=== PATIENT | female | born 1950 | race Caucasian/White ===

== ENCOUNTER 2018-09-26 06:23 | Inpatient (IN) | payer MEDICARE, BC ==
[2018-09-26] VITALS (30 sets, daily range): BP systolic 120–193; BP diastolic 64–97; PULSE 70–98; RESP 12–21; Ht 160 cm; Wt 74.5 kg
[~2018-09-26] VITALS: Ht 160 cm; Wt 74.5 kg
[~2018-09-26 06:23] MED LIST: FOR HTN; [UNRECOGNIZED DRUG - REMARK]
[2018-09-26] MEDS ORDERED: ATOR40TA68 PO (06:50)
[2018-09-26] MEDS ORDERED: GABA300C16 PO (06:51)
[2018-09-26] MEDS ORDERED: DULO20CA17 PO (06:51)
[2018-09-26] MEDS ORDERED: GLIP5TAB13 PO (06:52)
[2018-09-26] MEDS ORDERED: HEPARIN 1000 UNITS/ML 10 ML INJ ONE (06:52)
[2018-09-26] MEDS ORDERED: MIDAZOLAM 1 MG/ML 2 ML INJ ONE (06:52)
[2018-09-26] MEDS ORDERED: FENTAnyl 50 MCG/ML VIAL ONE (06:52)
[2018-09-26] MEDS ORDERED: LIDOCAINE 1% (MDV) 20 ML INJ ONE (06:52)
[2018-09-26] MEDS ORDERED: LISI10TA2 PO (06:52)
[2018-09-26] MEDS ORDERED: IODIXANOL LOCM 100 ML BTL ONE ×2 (06:52→08:52)
[2018-09-26] MEDS ORDERED: VERAPAMIL 5 MG INJ ONE (06:53)
[2018-09-26] MEDS ORDERED: NITROGLYCERIN (IC) 100 MCG/ML INJ ONE (06:53)
[2018-09-26] MEDS ORDERED: PANT40TA3 PO (06:53)
[2018-09-26] MEDS ORDERED: LINA5TAB PO (06:53)
[2018-09-26] MEDS ORDERED: SOD CHLORIDE 0.9% 500 ML ONE (06:54)
[2018-09-26] MEDS ORDERED: ENOX40DI2 SC (06:54)
[2018-09-26] MEDS ORDERED: METF100010 PO (07:06)
[2018-09-26] MEDS ORDERED: ASPI81TA52 PO (07:07)
[2018-09-26] MEDS ORDERED: INSU100V3 IJ (07:09)
[2018-09-26] MEDS ORDERED: METO-429 PO (07:09)
[2018-09-26] MEDS ORDERED: LANT3I SC (07:10)
[2018-09-26] MEDS ORDERED: BIVALIRUDIN 250MG /NS 50 ML 50 ML IVPB ONE (08:16)
[2018-09-26] MEDS ORDERED: IOHEXOL 350MG/ML 50 ML BTL ONE (08:16)
[2018-09-26] MEDS ORDERED: TICAGRELOR 90 MG TABLET ONE (08:19)
[2018-09-26] MEDS ORDERED: ASPIRIN 325 MG TAB ONE (08:21)
[2018-09-26] MEDS: ASPIRIN 81 MG TAB PO SCH (09:30)
[2018-09-26] MEDS ORDERED: LOSARTAN 50 MG TAB PO SCH (09:30)
--- NOTE | 2018-09-26 09:43 | OPR ---
Date/Time of Note Date/Time of Note DATE: 09/26/18 TIME: 09:28 Operative Report Procedure Date: Sep 26, 2018 Preoperative Diagnosis CAD, angina, abnormal cardiac CTA Postoperative Diagnosis same s/p PCI of LAD Operation/Procedure Performed see details Surgeon see signature line Metal Tube Cutter none Anesthesia Type: moderate sedation Estimated Blood Loss: minimal Transfusion none Specimen none Grafts/Implants none Complications none Procedure Description Procedure Date:09/26/18 Medical Or Surgical Instrument Maker/surgeon: Jeison Nolasco MD. Procedures Performed: 1)Left heart catheterization with selective left and right coronary angiography. 2)Balloon angioplasty and stenting of the mid LAD with 2.25 x 24 and 2.75 x 12 overlapping stents 3)Right femoral angiography with Perclose closure device Pre-operative Diagnosis:CAD, angina, abnormal cardiac CTA Post-operative Diagnosis:same s/p PCI Indications: 68 yo F with uncontrolled DM, HTN, HL, admitted for uncontrolled glucose and exertional angina. Cardiac CTA showed >75% LAD disease for which she was brought to the cardiac roving tester laboratory Description of Procedure: After informed consent, the patient was brought to the cardiac catheterization lab. The procedure site was prepped and draped in usual manner. The patient was premedicated with versed 1 mg and fentanyl 25 mcg. 3 mL lidocaine was injected into the left wrist. Next using the posterior wall technique, the 6/5 [place] sheath was inserted into the left radial artery. Next using the JR4, selective angiography of the right coronary artery were obtained. The left could not be engaged due to anatomy. The decision was made to convert to femoral acces and the right femoral artery was accessed with micropuncture and exchanged for a 6 [place] catheter. The decision was made to proceed with PCI of the LAD. A EBU 3.0 guide was advanced and engaged into the left coronary artery. After appropriate anticoagulation and antiplatelets were given, the BMW angioplasty wire was advanced past the lesion. Next the 2.0 X 12 balloon was used to dilate the lesion times 4 at a maximum of 10 gilberto. Subsequently, the Synergy 2.25 x 24 stent was advanced to the lesion and deployed at 12 gilberto. As the vessel tapered and the proximal portion was larger, this was stented with a Synergy 2.75 x 12 overlapping with the first stent. Next the stent was post dilated with the 2.5 x 12 and 2.75 x 12 noncompliant balloons. Final angiography revealed LORENZO 3 flow, no edge dissection, and appropriate stent expansion. Right femoral angiography was obtained and showed the sheath was in the common femoral artery. Next all equipment was removed and hemostasis was achieved by TR band for the left radial and Perclose closure device for the right femoral. Findings: Anatomy/Hemodynamics: Left main:normal LAD:ostial 40%, mid long up to 90% disease Diagonal:very small 1.5 mm vessel with diffuse severe disease Circumflex:luminal irregularities Obtuse marginal:distal 50-60% in a small tortuous vessel RCA:prox 40%, diffuse 20% PDA:luminal irregularities PLV:luminal irregularities LV angiography:not done LVEDP:5-10 mmHg No LV-Ao gradient Contrast used:180 mL Fluoroscopy time:23.8 Medications used: Versed 1 Fentanyl 25 Radial cocktail: heparin 5000 units, NTG 200mcg, verapamil 2.5mg Angiomax Brilinta 180mg Equipment used: 6 [place] 6 guide BMW angioplasty wire 2 x 12 balloon Synergy 2.25 x 24 and Synergy 2.75 x 12 overlapping drug eluting stents 2.5 x 12 and 2.75 x 12 noncompliant balloon Estimated blood loss<10 mL. Specimen: none Grafts/implants: none Complications: none Assessment: CAD: s/p PCI of LAD. Residual small vessel disease not amenable to PCI DM HTN HL Plan: -admit to tele -ASA 81mg indefinitely -brilinta 90mg BID -lipitor 40mg -metoprolol 25mg BID -losartan 50mg -DM control JEISON NOLASCO Sep 26, 2018 09:43
--- NOTE | 2018-09-26 09:44 | CONS ---
Assessment/Plan Assessment/Plan Hospital Course (Demo Recall) CAD: s/p PCI of LAD 09/26/18. Residual small vessel disease not amenable to PCI DM: A1C >14 HTN HL -admit to [facility] -ASA 81mg indefinitely -brilinta 90mg BID -lipitor 40mg -metoprolol 25mg BID -losartan 50mg -DM control Consultation Date/Type/Reason Admit Date/Time Date of Consultation: Sep 26, 2018 Type of Consult Cardiology Reason for Consultation chest pain, abnormal cardiac CTA Requesting Provider: JENNIFER RODRIGUEZ MD Date/Time of Note DATE: 09/26/18 TIME: 09:43 Hx of Present Illness 68 yo F with uncontrolled DM, HTN, HL, admitted for uncontrolled glucose and exertional angina. Cardiac CTA showed >75% LAD disease for which she was recommended to have cardiac cath by Dr. Rodriguez. She was transferred to [facility] where cath showed LAD disease, now s/p successful PCI. No chest pain or SOB post procedure. per hPi Past Medical History per HPI Home Meds Reported Medications Insulin Glargine* (Lantus*) 100 Unit/Ml Soln, 25 UNIT SC QHS, #1 VIAL 09/26/18 Insulin Regular, Human (Humulin R) 100 Unit/1 Ml Vial, 0 IJ DAILY, VIAL SLIDING SCALE 09/26/18 Metoprolol Tartrate* (Lopressor*) 50 Mg Tab, 50 MG PO Q6, #60 TAB 09/26/18 Aspirin (Low Dose Aspirin) 81 Mg Tablet.dr, 81 MG PO DAILY, #30 TAB 09/26/18 Metformin Hcl* (Metformin Hcl*) 1,000 Mg Tablet, 1000 MG PO WITH BREAKFAST DINNE, #60 TAB 09/26/18 Enoxaparin Sodium* (Enoxaparin Sodium*) 40 Mg/0.4 Ml Syringe, 40 MG SC DAILY, SYR 09/26/18 Linagliptin (TRADJENTA) 5 Mg Tablet, 5 MG PO DAILY, TAB 09/26/18 Pantoprazole* (Protonix*) 40 Mg Tablet.dr, 40 MG PO DAILY, TAB 09/26/18 Lisinopril* (Lisinopril*) 10 Mg Tablet, 10 MG PO DAILY, #30 TAB 09/26/18 Glipizide* (Glipizide*) 5 Mg Tablet, 5 MG PO AC BREAKFAST, TAB 09/26/18 Gabapentin* (Gabapentin*) 300 Mg Capsule, 300 MG PO BID, #60 CAP 09/26/18 Duloxetine Hcl* (Duloxetine Hcl*) 20 Mg Capsule.dr, 20 MG PO DAILY, #30 CAP 09/26/18 Atorvastatin* (Atorvastatin*) 40 Mg Tablet, 40 MG PO QHS, #30 TAB 09/26/18 Discontinued Reported Medications [For Dm Daily] No Conflict Check 02/27/14 [For Htn] No Conflict Check 02/27/14 Allergies: Coded Allergies: No Known Drug Allergies (Unverified Allergy, Unknown, 09/26/18) Social History Smoking Status: Current every day smoker Exam/Review of Systems Exam Vitals Vital Signs Date Temp Pulse Resp B/P (MAP) Pulse Ox O2 O2 Flow FiO2 Time Delivery Rate 09/26/18 96.6 77 18 156/69 98 Room Air 06:45 (98) Constitutional: alert, oriented Psych: no complaints, nl mood/affect Head: normocephalic, atraumatic Neck: supple; No jvd Respiratory: clear to auscultation; No crackles/rales Cardiovascular: regular rate and rhythm; No edema, No systolic murmur Gastrointestinal: soft, non-tender; No distended Musculoskeletal: nl extremities to inspection Neurological: nl mental status, nl speech Results Results 24hrs Laboratory Tests Test 09/26/18 06:57 Bedside Glucose 298 H CAMILO RODRIGUEZ Sep 26, 2018 09:44
[2018-09-26] MEDS ORDERED: hydrALAzine 20 MG INJ IV PRN (10:00)
[2018-09-26] MEDS: LOSARTAN 50 MG TAB PO SCH (10:21)
[2018-09-26] MEDS: ACETAMINOPHEN 325 MG TAB PO PRN (10:37)
[2018-09-26] MEDS: ACCU-CHEK XX SCH ×3 (11:30→22:06)
[2018-09-26] MEDS ORDERED: GLUCOSE GEL 15 GRAM TUBE PO PRN ×2 (12:30)
[2018-09-26] MEDS ORDERED: GLUCOSE GEL 15 GRAM TUBE BUCCAL PRN (12:30)
[2018-09-26] MEDS ORDERED: GLUCAGON 1 MG INJ IM PRN (12:30)
[2018-09-26] MEDS ORDERED: DEXTROSE 50% 50 ML SYRINGE IV PRN ×2 (12:30)
[2018-09-26] MEDS: INSULIN ASPART [NOVOLOG] 3 ML PEN SC SCH ×4 (12:37→22:02)
[2018-09-26] MEDS: HYDROCODONE/APAP (5/325) TAB PO PRN (15:34)
--- NOTE | 2018-09-26 16:33 | HP ---
DATE OF ADMISSION: 09/26/2018 CHIEF COMPLAINT: Coronary artery disease. HISTORY OF PRESENT ILLNESS: This is a 68-year-old female with a past medical history of diabetes, hy pertension, dyslipidemia, history of peptic ulcer disease, who presented to ER from a clinic due to h yperglycemia. The patient in the emergency room was also reported having anterior chest pain, nonrad iating. The patient was then transferred to [facility] [place] to undergo cardiac catheter ization for possible acute coronary syndrome. The patient underwent cardiac catheterization by Dr. Kristi lucas and had PCI to the LAD. The patient was then transferred to recovery room for further eval uation. Upon my evaluation of the patient at this time, she is currently stable. Denies any hemoptysis, [place] temesis or hematochezia. The patient denies any prior history of kidney disease, but does state that she had elevated blood glucose levels and uncontrolled sugars. No other events noted. PAST MEDICAL HISTORY: As stated above, history of diabetes, hypertension, dyslipidemia, peptic ulcer disease. PAST SURGICAL HISTORY: History of cholecystectomy. FAMILY HISTORY: No family history of kidney disease. SOCIAL HISTORY: Does not drink, smoke or do any drugs. MEDICATIONS: Have been reviewed. ALLERGIES: NO KNOWN DRUG ALLERGIES. REVIEW OF SYSTEMS: A 14-point review of systems was conducted. Pertinent positives stated in HPI, o therwise negative. PHYSICAL EXAMINATION: VITAL SIGNS: Blood pressure is 153/68, respiration 12, pulse 76, temperature is 98.3. HEENT: Head is normocephalic. NECK: Supple. HEART: Regular rate. LUNGS: Show diminished breath sounds at the base. ABDOMEN: Soft, nontender to palpation without rebound or guarding. EXTREMITIES: Negative for clubbing, cyanosis. No edema. DERMATOLOGIC: No rashes. MUSCULOSKELETAL: No joint effusions. NEUROLOGIC: No focal deficits. LABORATORY DATA: Have been reviewed. The patient's sodium is 137, potassium 3.7, BUN 11, creatinine 0.39, glucose 283. White count is 9.9, hemoglobin 13.0, platelet count 177. ASSESSMENT AND PLAN: This is a 68-year-old female who presents with: 1. Coronary artery disease. The patient is status post PCI to LAD. The patient is currently stable . We will continue medical management with aspirin, Brilinta, Lipitor. Metoprolol was started. We will follow up with cardiology for recommendations. 2. Diabetes, uncontrolled. The patient had a hemoglobin A1c of 14 at outside hospital. Plan is to start the patient on long-acting Lantus 15 units daily. We will give insulin with meals. We will al so continue oral medications of metformin and Tradjenta. We will adjust insulin regimen as needed. 3. Hypertension. Continue current blood pressure regimen. 4. Dyslipidemia. Continue statin therapy. 5. History of peptic ulcer disease. We will continue PPI. 6. Diabetic neuropathy. Continue Neurontin. 7. History of depression. Continue Cymbalta. 8. Gastrointestinal and deep venous thrombosis prophylaxis. Continue PPI and Lovenox. 9. General debility. Place physical therapy consult for evaluation. 10. History of back pain with radiculopathy. We will place a physical therapy for evaluation. Cont inue pain control and monitor closely. Dictated By: THIERNO MAC DO NR/NTS Conf#: [id number] DID#: [id number] CC: CAMILO RODRIGUEZ MD;*EndCC*
[2018-09-26] MEDS: ATORVASTATIN 40 MG TAB PO SCH (20:29)
[2018-09-26] MEDS: HYDROCODONE/APAP (10/325) TAB PO PRN (20:30)
[2018-09-26] MEDS: GABAPENTIN 300 MG CAP PO SCH (20:30)
[2018-09-26] MEDS: TICAGRELOR 90 MG TABLET PO SCH (20:33)
[2018-09-26] MEDS ORDERED: METOPROLOL 25 MG TAB PO SCH (21:00)
[2018-09-27] VITALS (11 sets, daily range): BP systolic 125–152; BP diastolic 60–84; PULSE 78–89; RESP 18–20
[2018-09-27] MEDS ORDERED: ACCU-CHEK XX SCH ×2 (02:00→17:25)
[2018-09-27] MEDS: HYDROCODONE/APAP (5/325) TAB PO PRN ×2 (02:56→12:34)
[2018-09-27] MEDS: HYDROCODONE/APAP (10/325) TAB PO PRN ×2 (05:31→17:08)
[2018-09-27] MEDS: INSULIN ASPART [NOVOLOG] 3 ML PEN SC SCH ×7 (07:58→21:48)
[2018-09-27] MEDS ORDERED: INSULIN GLARGINE [LANTus] (100 UNITS/ML) SYG SC SCH (08:00)
[2018-09-27] MEDS: ACCU-CHEK XX SCH ×4 (08:00→21:48)
[2018-09-27] MEDS ORDERED: LINAGLIPTIN 5 MG TABLET PO SCH ×2 (09:00→21:00)
[2018-09-27] MEDS: DULOXETINE 20 MG CAP DR PO SCH (09:09)
[2018-09-27] MEDS: GABAPENTIN 300 MG CAP PO SCH ×2 (09:09→21:40)
[2018-09-27] MEDS: PANTOPRAZOLE (EC) 40 MG TAB PO SCH (09:10)
[2018-09-27] MEDS: ASPIRIN 81 MG TAB PO SCH (09:10)
[2018-09-27] MEDS: LOSARTAN 50 MG TAB PO SCH (09:11)
[2018-09-27] MEDS: TICAGRELOR 90 MG TABLET PO SCH ×2 (09:12→21:46)
[2018-09-27] MEDS: ENOXAPARIN 40 MG/0.4 ML SYG SC SCH (09:21)
--- NOTE | 2018-09-27 09:28 | CONS ---
Assessment/Plan Assessment/Plan Hospital Course (Demo Recall) CAD: s/p PCI of LAD 09/26/18. Residual small vessel disease not amenable to PCI. Doing well DM: A1C >14 HTN HL -ASA 81mg -brilinta 90mg BID -lipitor 40mg -increase to metoprolol 50mg BID -losartan 100mg Ok for d/c from my perspective. Possible SNF Consultation Date/Type/Reason Admit Date/Time Sep 26, 2018 at 09:51 Initial Consult Date 09/26/18 Type of Consult Cardiology Requesting Provider: JENNIFER ESQUIVEL MD Date/Time of Note DATE: 09/27/18 TIME: 09:26 24 HR Interval Summary Free Text/Dictation No events. No complaints. No chest pain. BP better but still slightly high Exam/Review of Systems Exam Vitals Vital Signs Date Temp Pulse Resp B/P (MAP) Pulse Ox O2 O2 Flow FiO2 Time Delivery Rate 09/27/18 83 09:03 09/27/18 98.0 18 151/69 97 Room Air 07:27 (96) Intake and Output 09/26/18 09/26/18 09/27/18 1515:00 23:00 07:00 IntakeIntake Total 300 ml 250 ml BalanceBalance 300 ml 250 ml Constitutional: alert, oriented Psych: no complaints, nl mood/affect Head: normocephalic, atraumatic Neck: supple; No jvd Respiratory: clear to auscultation; No crackles/rales Cardiovascular: regular rate and rhythm; No edema, No systolic murmur Gastrointestinal: soft, non-tender; No distended Extremities: other (right groin slight ecchymosis, no hematoma. Left wrist no hematoma ) Neurological: nl speech Results Result Diagram: 09/27/18 0735 09/27/18 0735 Results 24hrs Laboratory Tests Test 09/26/18 09:58 09/26/18 10:47 09/26/18 11:52 09/26/18 16:48 Bedside Glucose 256 H 291 H 297 H White Blood Count 9.9 Red Blood Count 4.39 Hemoglobin 13.0 Hematocrit 38.1 Mean Corpuscular 86.8 Volume Mean Corpuscular 29.6 Hemoglobin Mean Corpuscular 34.1 Hemoglobin Concent Red Cell 11.9 Distribution Width Platelet Count 177 Mean Platelet Volume 11.0 H Immature 0.700 H Granulocytes % Neutrophils % 68.0 Lymphocytes % 24.2 Monocytes % 5.2 Eosinophils % 1.5 Basophils % 0.4 Nucleated Red Blood 0.0 Cells % Immature 0.070 H Granulocytes # Neutrophils # 6.7 Lymphocytes # 2.4 Monocytes # 0.5 Eosinophils # 0.2 Basophils # 0.0 Nucleated Red Blood 0.0 Cells # Sodium Level 137 Potassium Level 3.7 Chloride Level 104 Carbon Dioxide Level 24 Anion Gap 9 Blood Urea Nitrogen 11 Creatinine 0.39 L Est Glomerular > 60 Filtrat Rate mL/min Glucose Level 283 H Calcium Level 8.8 Total Bilirubin 0.2 Direct Bilirubin 0.00 Indirect Bilirubin 0.2 Aspartate Amino 20 Transf (AST/SGOT) Alanine 31 Aminotransferase (AL T/SGPT) Alkaline Phosphatase 143 H Total Protein 5.6 L Albumin 3.2 L Test 09/26/18 21:54 09/27/18 02:05 09/27/18 05:30 09/27/18 07:35 Bedside Glucose 269 H 220 Urine Color STRAW Urine Clarity CLEAR Urine pH 7.0 Urine Specific 1.008 [place] Urine Ketones TRACE A Urine Nitrite NEGATIVE Urine Bilirubin NEGATIVE Urine Urobilinogen NEGATIVE Urine Leukocyte TRACE A Esterase Urine Microscopic 0 RBC Urine Microscopic 5 WBC Urine Hemoglobin NEGATIVE Urine Random 23.44 Creatinine Urine Random Sodium 68 Urine Glucose 3+ H Urine Total Protein 21.0 H White Blood Count 8.3 Red Blood Count 4.25 Hemoglobin 12.6 Hematocrit 36.8 L Mean Corpuscular 86.6 Volume Mean Corpuscular 29.6 Hemoglobin Mean Corpuscular 34.2 Hemoglobin Concent Red Cell 12.0 Distribution Width Platelet Count 174 Mean Platelet Volume 11.6 H Immature 0.500 H Granulocytes % Neutrophils % 75.8 Lymphocytes % 15.2 Monocytes % 6.4 Eosinophils % 1.7 Basophils % 0.4 Nucleated Red Blood 0.0 Cells % Immature 0.040 H Granulocytes # Neutrophils # 6.3 Lymphocytes # 1.3 Monocytes # 0.5 Eosinophils # 0.1 Basophils # 0.0 Nucleated Red Blood 0.0 Cells # Sodium Level 139 Potassium Level 3.4 L Chloride Level 105 Carbon Dioxide Level 25 Anion Gap 9 Blood Urea Nitrogen 8 Creatinine 0.48 Est Glomerular > 60 Filtrat Rate mL/min Glucose Level 309 H Calcium Level 9.1 Phosphorus Level 4.3 Magnesium Level 1.6 L Test 09/27/18 07:55 Bedside Glucose 334 H Medications Medication Current Medications Acetaminophen (Tylenol Tab) 650 mg Q4H PRN PO NON-CARDIAC PAIN LEVEL (1-3) Last administered on 09/26/18 10:37; Admin Dose 650 MG; Start 09/26/18 at 09:30 Aspirin (Aspirin) 81 mg DAILY PO Last administered on 09/27/18 09:10; Admin Dose 81 MG; Start 09/26/18 at 09:30 Ticagrelor (Brilinta) 90 mg BID PO Last administered on 09/27/18 09:12; Admin Dose 90 MG; Start 09/26/18 at 21:00 Atorvastatin Calcium (Lipitor) 40 mg HS PO Last administered on 09/26/18 20:29; Admin Dose 40 MG; Start 09/26/18 at 21:00 Losartan Potassium (Cozaar) 100 mg DAILY PO Last administered on 09/27/18 09:11; Admin Dose 100 MG; Start 09/26/18 at 10:00 Hydralazine HCl (Apresoline) 10 mg Q4H PRN IV SBP >160 Last administered on 09/26/18 10:08; Admin Dose 10 MG; Start 09/26/18 at 10:00 Insulin Aspart (Novolog Insulin Pen) NOVOLOG *MILD* ALGORITHM WITH MEALS BEDTIME SC Last administered on 09/27/18 07:59; Admin Dose 5 UNIT; Start 09/26/18 at 12:00 Insulin Glargine (Lantus) 15 units DAILY@0800 SC Last administered on 09/27/18 08:06; Admin Dose 15 UNITS; Start 09/27/18 at 08:00 Duloxetine HCl (Cymbalta) 20 mg DAILY PO Last administered on 09/27/18 09:09; Admin Dose 20 MG; Start 09/27/18 at 09:00 Enoxaparin Sodium (Lovenox) 40 mg DAILY SC Last administered on 09/27/18 09:21; Admin Dose 40 MG; Start 09/27/18 at 09:00 Gabapentin (Neurontin) 300 mg BID PO Last administered on 09/27/18 09:09; Admin Dose 300 MG; Start 09/26/18 at 21:00 Linagliptin (Tradjenta) 5 mg DAILY PO Last administered on 09/27/18 09:09; Admin Dose 5 MG; Start 09/27/18 at 09:00 Pantoprazole (Protonix Tab) 40 mg DAILY PO Last administered on 09/27/18at 09:10; Admin Dose 40 MG; Start 09/27/18 at 09:00 Diagnostic Test (Pha) (Accu-Chek) 1 ea AC MEALS AND BEDTIME XX Last administered on 09/27/18at 08:00; Admin Dose 1 EA; Start 09/26/18 at 11:30 Miscellaneous Information 1 ea NOTE XX ; Start 09/26/18 at 12:30 Glucose (Glutose) 15 gm Q15M PRN PO DECREASED GLUCOSE; Start 09/26/18 at 12:30 Glucose (Glutose) 22.5 gm Q15M PRN PO DECREASED GLUCOSE; Start 09/26/18 at 12:30 Dextrose (D50w Syringe) 25 ml Q15M PRN IV DECREASED GLUCOSE; Start 09/26/18 at 12:30 Dextrose (D50w Syringe) 50 ml Q15M PRN IV DECREASED GLUCOSE; Start 09/26/18 at 12:30 Glucagon (Glucagen) 1 mg Q15M PRN IM DECREASED GLUCOSE; Start 09/26/18 at 12:30 Glucose (Glutose) 15 gm Q15M PRN BUCCAL DECREASED GLUCOSE; Start 09/26/18 at 12:30 Diagnostic Test (Pha) (Accu-Chek) 1 ea 02 XX Last administered on 09/27/18at 02:07; Admin Dose 1 EA; Start 09/27/18 at 02:00 Insulin Aspart (Novolog Insulin Pen) 4 unit WITH MEALS SC Last administered on 09/27/18at 07:58; Admin Dose 4 UNIT; Start 09/26/18 at 17:55 Acetaminophen/ Hydrocodone Bitart ([place] (5/325)) 1 tab Q6H PRN PO MODERATE PAIN LEVEL 4-6 Last administered on 09/27/18at 02:56; Admin Dose 1 TAB; Start 09/26/18 at 15:30 Acetaminophen/ Hydrocodone Bitart ([place] (10/325)) 1 tab Q8H PRN PO MODERATE PAIN LEVEL 4-6 Last administered on 09/27/18at 05:31; Admin Dose 1 TAB; Start 09/26/18 at 20:00 Metoprolol Tartrate (Lopressor) 50 mg BID PO ; Start 09/27/18 at 21:00; Status UNV Potassium Chloride (Potassium Chloride Pwd/Soln) 40 meq ONCE ONCE PO ; Start 09/27/18 at 09:30; Stop 09/27/18 at 09:31; Status UNV Magnesium Sulfate 50 ml @ 25 mls/hr ONCE ONCE IVPB ; Start 09/27/18 at 09:30; Stop 09/27/18 at 11:29; Status UNV CAMILO RODRIGUEZ Sep 27, 2018 09:28
[2018-09-27] MEDS ORDERED: POTASSIUM CHLORIDE 20 MEQ POWDER FOR ORAL SOLN PO ONE (09:30)
[2018-09-27] MEDS ORDERED: MAGNESIUM SULFATE 2 GM/50 ML 50 ML IVPB ONE (10:00)
--- NOTE | 2018-09-27 10:42 | PN ---
DATE: 09/27/2018 SUBJECTIVE: The patient is complaining about back pain. She describes it as chronic. The patient w as seen by orthopedist previously and has been told she is not a surgical candidate, per patient. I spoke with the patient about discharge planning. The patient is requesting to go home. Does not wis h to go to SNF. No other events noted. OBJECTIVE: VITAL SIGNS: Blood pressure is 151/69, respirations 18, pulse 87, temperature 98.0. HEENT: Head is normocephalic. NECK: Supple. HEART: Regular rate. LUNGS: Show diminished breath sounds at base. ABDOMEN: Soft, nontender to palpation without rebound or guarding. EXTREMITIES: Negative for clubbing, cyanosis, no edema. DERMATOLOGIC: No rashes. MUSCULOSKELETAL: The patient has tenderness to palpation along the lumbosacral region. DERMATOLOGIC: No rashes. NEUROLOGIC: No change in exam. MEDICATIONS: Have been reviewed. LABORATORY DATA: Has been reviewed. ASSESSMENT AND PLAN: 1. Coronary artery disease, status post percutaneous coronary intervention to left anterior descendi ng. The patient is currently stable. Continue medical management. Appreciate followup with cardiol ogy recommendation. 2. Diabetes, uncontrolled. The patient's insulin was adjusted. We will increase Lantus 20 units. Continue Tradjenta. Continue insulin with meals. 3. Hypertension. Continue current blood pressure regimen. 4. Dyslipidemia. Continue statin therapy. 5. History of peptic ulcer disease. Continue proton pump inhibitor. 6. Diabetic neuropathy. Continue Neurontin. 7. History of depression, continue Cymbalta. 8. Chronic back pain with radiculopathy. Continue pain control, physical therapy evaluation and mon itor closely. X-ray of the spine is pending. 9. General debility. Continue physical therapy. 10. Gastrointestinal and deep venous thrombosis prophylaxis. Continue proton pump inhibitor and Karen enox. DISPOSITION: The patient may be discharged home today if cleared by physical therapy and will need o utpatient followup with orthopedist. Dictated By: THIERNO MAC DO NR/NTS Conf#: [id number] DID#: [id number] CC: CAMILO RODRIGUEZ MD;*EndCC*
[2018-09-27] MEDS ORDERED: INSULIN ASPART [NOVOLOG] 3 ML PEN SC SCH (13:00)
[2018-09-27] MEDS: ACETAMINOPHEN 325 MG TAB PO PRN (16:30)
[2018-09-27] MEDS: metFORMIN 500 MG TAB PO SCH (17:08)
[2018-09-27] MEDS ORDERED: INSULIN GLARGINE [LANTus] (100 UNITS/ML) SYG SC ONE (18:30)
[2018-09-27] MEDS: ATORVASTATIN 40 MG TAB PO SCH (21:40)
[2018-09-27] MEDS: METOPROLOL 50 MG TAB PO SCH (21:41)
[2018-09-28] VITALS (10 sets, daily range): BP systolic 105–149; BP diastolic 59–73; PULSE 75–86; RESP 18–20
[2018-09-28] MEDS: ACCU-CHEK XX SCH ×5 (02:17→21:14)
[2018-09-28] MEDS: HYDROCODONE/APAP (10/325) TAB PO PRN ×2 (02:17→19:50)
[2018-09-28] MEDS: metFORMIN 500 MG TAB PO SCH ×2 (07:42→17:30)
[2018-09-28] MEDS: INSULIN ASPART [NOVOLOG] 3 ML PEN SC SCH ×7 (07:50→21:00)
[2018-09-28] MEDS ORDERED: INSULIN GLARGINE [LANTus] (100 UNITS/ML) SYG SC SCH (08:00)
[2018-09-28] MEDS: PANTOPRAZOLE (EC) 40 MG TAB PO SCH (09:02)
[2018-09-28] MEDS: LOSARTAN 50 MG TAB PO SCH (09:02)
[2018-09-28] MEDS: ASPIRIN 81 MG TAB PO SCH (09:02)
[2018-09-28] MEDS: GABAPENTIN 300 MG CAP PO SCH ×2 (09:02→21:13)
[2018-09-28] MEDS: DULOXETINE 20 MG CAP DR PO SCH (09:02)
[2018-09-28] MEDS: METOPROLOL 50 MG TAB PO SCH ×2 (09:03→21:19)
[2018-09-28] MEDS: ENOXAPARIN 40 MG/0.4 ML SYG SC SCH (09:08)
[2018-09-28] MEDS: TICAGRELOR 90 MG TABLET PO SCH ×2 (09:09→21:17)
[2018-09-28] MEDS: HYDROCODONE/APAP (5/325) TAB PO PRN (09:16)
--- NOTE | 2018-09-28 10:11 | DS ---
DATE OF ADMISSION: 09/26/2018 DATE OF DISCHARGE: 09/28/2018 HOSPITAL COURSE: This is a 68-year-old female with a past medical history of diabetes, hypertension, dyslipidemia, history of peptic ulcer disease, history of chronic back pain with chronic radiculopat hy who presents to an outside hospital with chest pain. The patient was ruled in for acute coronary syndrome, was transferred to [facility] and underwent cardiac catheterization by Dr Yumiko Yanez. The patient had a PCI to the LAD. The patient was subsequently admitted to [facility] for observation and for hyperglycemia. The patient while at the [facility] has been stable. The patient's glucose levels have improved after adjusting insulin regimen . The patient has had no cardiac symptoms. No chest pain. The patient does have chronic back pain, which she states has been seen and evaluated in the past by orthopedist and patient is not a surgica l candidate. The patient's pain is controlled with opiate therapy. Currently, at this time, the pat ient will be transferred to a fpc facility for continued rehabilitation. At the time of transfer, the patient is stable, in no acute distress. FINAL DIAGNOSES: 1. Coronary artery disease, status post percutaneous coronary intervention to the left anterior desc ending artery. Continue medical management. Continue aspirin, Brilinta, and Lipitor. 2. Diabetes. Glucose levels remain elevated but improving. Continue to adjust insulin. Continue c urrent insulin regimen. 3. Hypertension. 4. Dyslipidemia. 5. Peptic ulcer disease. 6. Neuropathy and depression. 7. Chronic back pain with radiculopathy. Continue physical therapy, continue pain control. 8. General debility. 9. Gastrointestinal and deep vein thrombosis prophylaxis. Please note I spent over 40 minutes of time preparing the patient's discharge. FINAL MEDICATIONS: See reconciliation list. DISCHARGE: At the time of discharge, the patient is stable, in no acute distress. Dictated By: THIERNO MAC DO NR/NTS Conf#: [id number] DID#: [id number] CC: CAMILO RODRIGUEZ MD;*EndCC*
[2018-09-28] MEDS: LINAGLIPTIN 5 MG TABLET PO SCH (12:23)
[2018-09-28] MEDS: ACETAMINOPHEN 325 MG TAB PO PRN (12:30)
--- NOTE | 2018-09-28 12:49 | CONS ---
Assessment/Plan Assessment/Plan Hospital Course (Demo Recall) CAD: s/p PCI of LAD 09/26/18. Residual small vessel disease not amenable to PCI. Doing well DM: A1C >14 HTN HL s/p fall: mechanical. Imaging unremarkable -ASA 81mg -brilinta 90mg BID -lipitor 40mg -metoprolol 50mg BID -losartan 100mg Ok for d/c from my perspective Consultation Date/Type/Reason Admit Date/Time Sep 26, 2018 at 09:51 Initial Consult Date 09/26/18 Type of Consult Cardiology Requesting Provider: JENNIFER ESQUIVEL MD Date/Time of Note DATE: 09/28/18 TIME: 12:48 24 HR Interval Summary Free Text/Dictation s/p fall today when her leg gave out. No dizziness and no arrhythmia on tele. CT head, XR spine and hip all without fracture or bleed.No complaints except for mild headache Exam/Review of Systems Exam Vitals Vital Signs Date Temp Pulse Resp B/P (MAP) Pulse Ox O2 O2 Flow FiO2 Time Delivery Rate 09/28/18 98.4 82 18 123/73 98 11:02 (90) 09/27/18 Room Air 15:16 Intake and Output 09/27/18 09/27/18 09/28/18 1515:00 23:00 07:00 IntakeIntake Total 50 ml 1140 ml 760 ml OutputOutput Total 500 ml 825 ml BalanceBalance 50 ml 640 ml -65 ml Constitutional: alert, oriented Psych: no complaints, nl mood/affect Head: normocephalic, atraumatic Neck: supple; No jvd Respiratory: clear to auscultation; No crackles/rales Cardiovascular: regular rate and rhythm; No edema Gastrointestinal: soft, non-tender Neurological: nl mental status, nl speech Results Result Diagram: 09/27/18 0735 09/28/18 1035 Results 24hrs Laboratory Tests Test 09/27/18 17:10 09/27/18 21:38 09/28/18 02:15 09/28/18 07:45 Bedside Glucose 315 H 199 212 271 H Test 09/28/18 10:35 09/28/18 12:21 Sodium Level 136 Potassium Level 4.1 Chloride Level 101 Carbon Dioxide Level 26 Anion Gap 9 Blood Urea Nitrogen 11 Creatinine 0.56 Est Glomerular > 60 Filtrat Rate mL/min Glucose Level 299 H Calcium Level 9.3 Magnesium Level 1.8 Bedside Glucose 219 Medications Medication Current Medications Acetaminophen (Tylenol Tab) 650 mg Q4H PRN PO NON-CARDIAC PAIN LEVEL (1-3) Last administered on 09/28/18 12:30; Admin Dose 650 MG; Start 09/26/18 at 09:30 Aspirin (Aspirin) 81 mg DAILY PO Last administered on 09/28/18 09:02; Admin Dose 81 MG; Start 09/26/18 at 09:30 Ticagrelor (Brilinta) 90 mg BID PO Last administered on 09/28/18 09:09; Admin Dose 90 MG; Start 09/26/18 at 21:00 Atorvastatin Calcium (Lipitor) 40 mg HS PO Last administered on 09/27/18 21:40; Admin Dose 40 MG; Start 09/26/18 at 21:00 Losartan Potassium (Cozaar) 100 mg DAILY PO Last administered on 09/28/18 09:02; Admin Dose 100 MG; Start 09/26/18 at 10:00 Hydralazine HCl (Apresoline) 10 mg Q4H PRN IV SBP >160 Last administered on 09/26/18 10:08; Admin Dose 10 MG; Start 09/26/18 at 10:00 Duloxetine HCl (Cymbalta) 20 mg DAILY PO Last administered on 09/28/18 09:02; Admin Dose 20 MG; Start 09/27/18 at 09:00 Enoxaparin Sodium (Lovenox) 40 mg DAILY SC Last administered on 09/28/18 09:08; Admin Dose 40 MG; Start 09/27/18 at 09:00 Gabapentin (Neurontin) 300 mg BID PO Last administered on 09/28/18 09:02; Admin Dose 300 MG; Start 09/26/18 at 21:00 Pantoprazole (Protonix Tab) 40 mg DAILY PO Last administered on 09/28/18 09:02; Admin Dose 40 MG; Start 09/27/18 at 09:00 Diagnostic Test (Pha) (Accu-Chek) 1 ea AC MEALS AND BEDTIME XX Last administered on 09/28/18 12:20; Admin Dose 1 EA; Start 09/26/18 at 11:30 Miscellaneous Information 1 ea NOTE XX ; Start 09/26/18 at 12:30 Glucose (Glutose) 15 gm Q15M PRN PO DECREASED GLUCOSE; Start 09/26/18 at 12:30 Glucose (Glutose) 22.5 gm Q15M PRN PO DECREASED GLUCOSE; Start 09/26/18 at 12:30 Dextrose (D50w Syringe) 25 ml Q15M PRN IV DECREASED GLUCOSE; Start 09/26/18 at 12:30 Dextrose (D50w Syringe) 50 ml Q15M PRN IV DECREASED GLUCOSE; Start 09/26/18 at 12:30 Glucagon (Glucagen) 1 mg Q15M PRN IM DECREASED GLUCOSE; Start 09/26/18 at 12:30 Glucose (Glutose) 15 gm Q15M PRN BUCCAL DECREASED GLUCOSE; Start 09/26/18 at 12:30 Acetaminophen/ Hydrocodone Bitart ([place] (5/325)) 1 tab Q6H PRN PO MODERATE PAIN LEVEL 4-6 Last administered on 09/28/18at 09:16; Admin Dose 1 TAB; Start 09/26/18 at 15:30 Acetaminophen/ Hydrocodone Bitart ([place] (10/325)) 1 tab Q8H PRN PO MODERATE PA IN LEVEL 4-6 Last administered on 09/28/18at 02:17; Admin Dose 1 TAB; Start 09/26/18 at 20:00 Metoprolol Tartrate (Lopressor) 50 mg BID PO Last administered on 09/28/18at 09:03; Admin Dose 50 MG; Start 09/27/18 at 21:00 Diagnostic Test (Pha) (Accu-Chek) 1 ea 02 XX Last administered on 09/28/18at 02:17; Admin Dose 1 EA; Start 09/28/18 at 02:00 Insulin Aspart (Novolog Insulin Pen) NOVOLOG *MODERATE* ALGORITHM WITH MEALS BEDTIME SC Last administered on 09/28/18 12:26; Admin Dose 4 UNIT; Start at 17:55 Linagliptin (Tradjenta) 5 mg DAILY PO Last administered on 09/28/18 12:23; Admin Dose 5 MG; Start 09/28/18 at 09:00 Insulin Aspart (Novolog Insulin Pen) 6 unit WITH MEALS SC Last administered on 09/28/18at 12:25; Admin Dose 6 UNIT; Start 09/27/18 at 17:55 Metformin HCl (Glucophage) 1,000 mg BID WITH MEALS PO Last administered on 09/28/18at 07:42; Admin Dose 1,000 MG; Start 09/27/18 at 17:55 Insulin Glargine (Lantus) 25 units DAILY@0800 SC ; Start 09/29/18 at 08:00 CAMILO RODRIGUEZ Sep 28, 2018 12:49
[2018-09-28] MEDS: ATORVASTATIN 40 MG TAB PO SCH (21:13)
[2018-09-29] VITALS (8 sets, daily range): BP systolic 126–132; BP diastolic 62–77; PULSE 77–93; RESP 17–20
[2018-09-29] MEDS ORDERED: ONDANSETRON 4 MG INJ IV PRN
[2018-09-29] MEDS: ACCU-CHEK XX SCH ×3 (02:00→11:45)
[2018-09-29] MEDS: HYDROCODONE/APAP (10/325) TAB PO PRN ×2 (05:14→06:03)
[2018-09-29] MEDS: metFORMIN 500 MG TAB PO SCH (07:42)
[2018-09-29] MEDS: INSULIN ASPART [NOVOLOG] 3 ML PEN SC SCH ×4 (07:48→11:49)
[2018-09-29] MEDS ORDERED: INSULIN GLARGINE [LANTus] (100 UNITS/ML) SYG SC SCH (08:00)
--- NOTE | 2018-09-29 08:18 | DS ---
Date/Time of Note Date/Time of Note DATE: 09/29/18 TIME: 08:17 Discharge Summary Admission/Discharge Info Admit Date/Time Sep 26, 2018 at 09:51 Discharge Date/Time Hospital Course HOSPITAL COURSE: This is a 68-year-old female with a past medical history of diabetes, hypertension, dyslipidemia, history of peptic ulcer disease, history of chronic back pain with chronic radiculopathy who presents to an outside hospital with chest pain. The patient was ruled in for acute coronary syndrome, was transferred to [facility] and underwent cardiac catheterization by Dr. Jones. The patient had a PCI to the LAD. The patient was subsequently admitted to [facility] for observation and for hyperglycemia. The patient while at the [facility] has been stable. The patient's glucose levels have improved after adjusting insulin regimen. The patient has had no cardiac symptoms. No chest pain. The patient does have chronic back pain, which she states has been seen and evaluated in the past by orthopedist and patient is not a surgical candidate. The patient's pain is controlled with opiate therapy. she had a mechanical fall but did not sustain any injuries. Currently, at this time, the patient will be transferred to a senior care facility for continued rehabilitation. At the time of transfer, the patient is stable, in no acute distress. FINAL DIAGNOSES: 1. Coronary artery disease, status post percutaneous coronary intervention to the left anterior descending artery. Continue medical management. Continue aspirin, Brilinta, and Lipitor. 2. Diabetes. Glucose levels remain elevated but improving. Continue to adjust insulin. Continue current insulin regimen. 3. Hypertension. 4. Dyslipidemia. 5. Peptic ulcer disease. 6. Neuropathy and depression. 7. Chronic back pain with radiculopathy. Continue physical therapy, continue pain control. 8. General debility. 9. Gastrointestinal and deep vein thrombosis prophylaxis. Please note I spent over 40 minutes of time preparing the patient's discharge. FINAL MEDICATIONS: See reconciliation list. DISCHARGE: At the time of discharge, the patient is stable, in no acute distress. Home Meds Reported Medications Insulin Glargine* (Lantus*) 100 Unit/Ml Soln, 25 UNIT SC QHS, #1 VIAL 09/26/18 Insulin Regular, Human (Humulin R) 100 Unit/1 Ml Vial, 0 IJ DAILY, VIAL SLIDING SCALE 09/26/18 Metoprolol Tartrate* (Lopressor*) 50 Mg Tab, 50 MG PO Q6, #60 TAB 09/26/18 Aspirin (Low Dose Aspirin) 81 Mg Tablet.dr, 81 MG PO DAILY, #30 TAB 09/26/18 Metformin Hcl* (Metformin Hcl*) 1,000 Mg Tablet, 1000 MG PO WITH BREAKFAST DINNE, #60 TAB 09/26/18 Enoxaparin Sodium* (Enoxaparin Sodium*) 40 Mg/0.4 Ml Syringe, 40 MG SC DAILY, SYR 09/26/18 Linagliptin (TRADJENTA) 5 Mg Tablet, 5 MG PO DAILY, TAB 09/26/18 Pantoprazole* (Protonix*) 40 Mg Tablet.dr, 40 MG PO DAILY, TAB 09/26/18 Gabapentin* (Gabapentin*) 300 Mg Capsule, 300 MG PO BID, #60 CAP 09/26/18 Duloxetine Hcl* (Duloxetine Hcl*) 20 Mg Capsule.dr, 20 MG PO DAILY, #30 CAP 09/26/18 Atorvastatin* (Atorvastatin*) 40 Mg Tablet, 40 MG PO QHS, #30 TAB 09/26/18 Discontinued Reported Medications Lisinopril* (Lisinopril*) 10 Mg Tablet, 10 MG PO DAILY, #30 TAB 09/26/18 Glipizide* (Glipizide*) 5 Mg Tablet, 5 MG PO AC BREAKFAST, TAB 09/26/18 [For Dm Daily] No Conflict Check 02/27/14 [For Htn] No Conflict Check 02/27/14 Primary Care Provider Not On Staff Doctor Time spent on discharge: < 30 minutes Pending Labs Laboratory Tests Test 09/28/18 10:35 09/28/18 12:21 09/28/18 17:13 09/28/18 21:09 Sodium Level 136 mmol/L (135-144 ) Potassium 4.1 Level mmol/L (3.5-5.1 ) Chloride Level 101 mmol/L (97-110) Carbon Dioxide 26 Level mmol/L (21-31) Anion Gap 9 (5-13) Blood Urea 11 mg/dl (7-20) Nitrogen Creatinine 0.56 mg/dl (0.44-1.0 0) Est Glomerular > 60 Filtrat mL/min (>60) Rate mL/min Glucose Level 299 mg/dl (70-220) Calcium Level 9.3 mg/dl (8.4-10.2 ) Magnesium 1.8 Level mg/dl (1.7-2.5) Bedside 219 206 124 Glucose mg/dL (70-220) mg/dL (70-220) mg/dL (70-220) Test 09/29/18 07:44 Bedside 259 Glucose mg/dL (70-220) CARLOS NAM DO Sep 29, 2018 08:18
[2018-09-29] MEDS: GABAPENTIN 300 MG CAP PO SCH (08:41)
[2018-09-29] MEDS: METOPROLOL 50 MG TAB PO SCH (08:41)
[2018-09-29] MEDS: ASPIRIN 81 MG TAB PO SCH (08:41)
[2018-09-29] MEDS: LINAGLIPTIN 5 MG TABLET PO SCH (08:41)
[2018-09-29] MEDS: PANTOPRAZOLE (EC) 40 MG TAB PO SCH (08:41)
[2018-09-29] MEDS: DULOXETINE 20 MG CAP DR PO SCH (08:41)
[2018-09-29] MEDS: LOSARTAN 50 MG TAB PO SCH (08:42)
[2018-09-29] MEDS: ENOXAPARIN 40 MG/0.4 ML SYG SC SCH (08:44)
[2018-09-29] MEDS: TICAGRELOR 90 MG TABLET PO SCH (08:44)
== END 2018-09-29 14:05 | DRG 247 ==
LOC: SDS 06:23 → CCL 06:23 → REC 09:51 → TEL 14:22
PROVIDERS: ADMIT Internal Medicine Interventional Cardiology; ATTEND Internal Medicine Interventional Cardiology
PROC: B215YZZ Fluoroscopy of Left Heart using Other Contrast (ICD-10-PCS; 2018-09-26)
PROC: B211YZZ Fluoroscopy of Multiple Coronary Arteries using Other Contrast (ICD-10-PCS; 2018-09-26)
PROC: 027035Z Dilation of Coronary Artery, One Artery with Two Drug-eluting Intraluminal Devices, Percutaneous Approach (ICD-10-PCS; principal; 2018-09-26 07:30)
PROC: 4A023N7 Measurement of Cardiac Sampling and Pressure, Left Heart, Percutaneous Approach (ICD-10-PCS; 2018-09-26 07:30)
DX: I25.119 Atherosclerotic heart disease of native coronary artery with unspecified angina pectoris (principal); I10 Essential (primary) hypertension; E11.65 Type 2 diabetes mellitus with hyperglycemia; E78.5 Hyperlipidemia, unspecified; E11.40 Type 2 diabetes mellitus with diabetic neuropathy, unspecified; F32.9 Major depressive disorder, single episode, unspecified; M54.10 Radiculopathy, site unspecified; K27.9 Peptic ulcer, site unspecified, unspecified as acute or chronic, without hemorrhage or perforation; R53.81 Other malaise; G89.29 Other chronic pain; Z79.4 Long term (current) use of insulin
CPT/HCPCS: 70450; 72100; 73520; 80048; 80076; 81001; 81003; 82043; 82962; 83735; 84100; 84155; 84300; 85025; 93458; 97162; C1725; C1760; C1874; C1887; C1894; C9600; J0360; J0583; J1644; J1650; J1815; J2250; J2405; J3010; J3475; J7040; Q9967